=== PATIENT | female | born 1960 | race Caucasian/White ===

== ENCOUNTER → 2017-02-25 | Outpatient (CLI) | payer BC ==
--- NOTE | 2017-02-25 15:25 | US ---
EXAMINATION TYPE: US thyroid st tissue head/neck DATE OF EXAM: 02/25/2017 COMPARISON: NONE CLINICAL HISTORY: E03.9 Hypothyroidism. Hypothyroidism, patient on medication for 15-17 years GLAND SIZE: Right Lobe: 5.0 x 2.0 x 1.9 cm Overall Parenchyma: homogenous Left Lobe: 4.5 x 1.4 x 1.4 cm Overall Parenchyma: homogeneous Isthmus Thickness: 0.3 cm NODULES RIGHT: # of nodules measured on right: 0 LEFT: # of nodules measured on left: 2 1. 1.4 X 0.6 x 0.9 cm cystic nodule at the upper pole with well-defined margins; . This nodule is wider than tall and shows no intranodular vascularity. Prior size: no prior 2. 0.6 X 0.5 x 0.6 cm isoechoic solid nodule at the mid pole with poorly defined margins; . This no dule is wider than tall and shows intranodular vascularity. Prior size: no prior ISTHMUS: # of nodules measured in the isthmus: 0 IMPRESSION: There are 2 left-sided thyroid nodules with the largest measuring 1.4 cm.
== END ==
LOC: RADUSWWP 14:48
PROVIDERS: ATTEND Family Medicine
DX: E04.2 Nontoxic multinodular goiter (principal); E03.9 Hypothyroidism, unspecified
CPT/HCPCS: 76536

== ENCOUNTER → 2017-11-25 | Outpatient (CLI) | payer BC ==
--- NOTE | 2017-11-25 15:44 | US ---
EXAMINATION TYPE: US thyroid st tissue head/neck DATE OF EXAM: 11/25/2017 COMPARISON: US CLINICAL HISTORY: Hypothyroidism E03.9. Hypothyroid, F/U previous GLAND SIZE: Right Lobe: 4.2 x 1.5 x 1.4 cm Overall Parenchyma: Slightly heterogeneous Left Lobe: 3.7 x 1.7 x 1.3 cm Overall Parenchyma: homogeneous Isthmus Thickness: 0.3 cm NODULES RIGHT: # of nodules measured on right: 1 1. 0.6 X 0.4 x 0.4 cm hypoechoic mixed nodule at the lower pole with poorly defined margins; This nodule is taller than wide and shows intranodular vascularity. Prior size: Not visualized on prior LEFT: # of nodules measured on left: 2 1. 1.4 X 0.6 x 0.8 cm cystic nodule at the mid pole with well-defined margins; This nodule is wider than tall and shows no intranodular vascularity. Prior size: 1.4 x 0.6 x 0.9 cm 2. 0.4 X 0.5 x 0.4 cm isoechoic solid nodule at the lower pole with poorly defined margins; This no dule is wider than tall and shows no intranodular vascularity. Prior size: 0.6 x 0.5 x 0.6 cm Bilateral neck scanned, no evidence of lymphadenopathy. Stable nodules on the left with new sub-cent imeter nodule on the right. IMPRESSION: Overall benign-appearing cystic left thyroid nodule measuring 1.4 cm and stable subcentimeter left th yroid nodule. Additional new subcentimeter right thyroid nodule is identified for which surveillance is recommended.
== END | disposition home or self-care (01) ==
LOC: RADUSWWP 14:44
PROVIDERS: ATTEND Family Medicine
DX: E04.2 Nontoxic multinodular goiter (principal); E03.9 Hypothyroidism, unspecified
CPT/HCPCS: 76536

== ENCOUNTER → 2018-01-03 | Outpatient (CLI) | payer BC ==
[2018-01-03 08:11] VITALS: BP 126/82; PULSE 71; TEMP 98.4; BMI 31.0
--- NOTE | 2018-01-03 08:46 | P.HPOB ---
History of Present Illness H&P Date: 01/03/18 Chief Complaint: The patient is here for her routine gynecologic exam and mammogram. This is a 57-year-old G0 with an LMP of 2001. She status post ASHANTI BSO for benign reasons. The patient is without gynecologic complaints. Review of Systems The patient has lost 12 pounds over the last 2 years. She denies respiratory, cardiac, or G.I. problems. Past Medical History Past Medical History: GERD/Reflux, Thyroid Disorder (Hypothyroid) Additional Past Medical History / Comment(s): Osteopenia. 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 History of Any Multi-Drug Resistant Organisms: None Reported Past Surgical History: Bladder Surgery (Vaginal bladder sling 2009), Hysterectomy (ASHANTI BSO in 2001), Joint Replacement (Left and right knee replacements) Additional Past Surgical History / Comment(s): Right elbow tumor removed, bunionectomy, Multiple colonoscopies the most recent in 2012. Past Psychological History: No Psychological Hx Reported Smoking Status: Current every day smoker (5 cigarettes per day) Past Alcohol Use History: Occasional (12 per week) Past Drug Use History: None Reported Additional History: She's been since 1983 and retired from the [employer] in 2018. She collects and restores older cars. - Past Family History Father Family Medical History: Cancer (Esophagus) Mother Family Medical History: Cancer (Breast) Medications and Allergies Home Medications Medication Instructions Recorded Confirmed Type Aspirin [Children's Aspirin] mg PO DAILY 01/03/18 History Cholecalciferol [Vitamin D3] tab PO DAILY 01/03/18 History Levothyroxine Sodium [Synthroid] mcg PO DAILY 01/03/18 History Multivitamin [Multivitamins Adult tab PO DAILY 01/03/18 History Gummies] Raloxifene [Evista] mg PO DAILY 01/03/18 History Allergies Allergy/AdvReac Type Severity Reaction Status Date / Time No Known Allergies Allergy Unverified 01/03/18 08:05 Exam Vital Signs Temp Pulse BP 01/03/18 08:06 98.4 F 71 126/82 Intake and Output 01/02/18 01/03/18 01/03/18 22:59 06:59 14:59 Other: Weight 89.811 kg Height 5'7", BMI 31. This is a well-developed well-nourished white female who is alert and oriented times 3 in no acute distress. HEENT: Within normal limits. NECK: Supple without mass or thyromegaly. CHEST AND LUNGS: Clear to auscultation. HEART: Regular rate and rhythm. BREASTS: Are without mass or discharge. AXILLARY EXAM: Negative for adenopathy. BACK: Negative for CVA tenderness. ABDOMEN: Soft, nontender, without palpable masses. PELVIC EXAM: External genitalia appears normal with mild atrophy. Vagina appears normal is mild atrophy. There is no evidence of prolapse. Bimanual examination is negative for mass or tenderness. RECTAL EXAM: Rectovaginal exam is negative for mass or tenderness and is negative for occult blood. EXTREMITIES: Nontender. IMPRESSION: 1. 57-year-old menopausal female who is status post ASHANTI BSO with normal gynecologic exam. 2. History of osteopenia who is on if Evista through her primary care physician. PLAN: 1. Pap smears have been discontinued. 2. Self breast awareness was discussed. 3. Screening mammogram will be done today. 4. Osteoporosis prevention was discussed. She is on Evista prescribed by her primary care physician. It has been 3 years since her last bone density test. I have recommended repeating the bone density test and an order slip was given to the patient for this. 5. She will return in one year.
--- NOTE | 2018-01-05 10:28 | MM ---
Reason for exam: screening (asymptomatic). Last mammogram was performed 3 years and 6 months ago. History: Patient is postmenopausal and is nulliparous. Family history of breast cancer in mother at age 25. Benign right mammotome panel of the right breast, February 05, 2008. Physical Findings: A clinical breast exam by your physician is recommended on an annual basis and results should be correlated with mammographic findings. MG 3D Screening Mammo W/Cad Bilateral CC and MLO view(s) were taken. Prior study comparison: June 25, 2014, bilateral MG screening mammo w CAD. June 20, 2013, bilateral digital screening mammo w/CAD. There are scattered fibroglandular densities. Previous mammotome biopsy in the right breast. Focal asymmetry right upper inner quadrant, stable. No significant changes when compared with prior studies. ASSESSMENT: Benign, BI-RAD 2 RECOMMENDATION: Routine screening mammogram of both breasts in 1 year.
== END | disposition home or self-care (01) ==
LOC: WWCWWP 07:51
PROVIDERS: ATTEND Obstetrics & Gynecology
DX: Z12.31 Encounter for screening mammogram for malignant neoplasm of breast (principal)
CPT/HCPCS: 77063; 77067

== ENCOUNTER → 2018-06-29 | Outpatient (CLI) | payer BC ==
[2018-06-29 17:59] LABS: T4, Free (Free Thyroxine) 1.4 ng/dL (0.80-1.80)
== END | disposition home or self-care (01) ==
LOC: LABWHC1 10:22
PROVIDERS: ATTEND Internal Medicine Endocrinology, Diabetes & Metabolism
DX: E04.2 Nontoxic multinodular goiter (principal)
CPT/HCPCS: 36415; 84439; 84443

== ENCOUNTER → 2019-01-01 | Outpatient (CLI) | payer BC ==
--- NOTE | 2019-01-01 13:30 | US ---
EXAMINATION TYPE: US thyroid st tissue head/neck DATE OF EXAM: 01/01/2019 COMPARISON: US 11/25/17 CLINICAL HISTORY: E04.2 Nontoxic Multinodular Goiter. GLAND SIZE: Right Lobe: 4.2 x 1.8 x 1.3 cm Overall Parenchyma: homogenous Left Lobe: 3.7 x 1.5 x 1.1 cm Overall Parenchyma: homogeneous Isthmus Thickness: 0.4 cm NODULES RIGHT: # of nodules measured on right: 1 1. 0.9 X 0.7 x 0.4 cm isoechoic mixed nodule at the lower pole with poorly defined margins; . This nodule is wider than tall and shows no intranodular vascularity. Prior size: 0.6 x 0.4 x 0.4 cm LEFT: # of nodules measured on left: 2 1. 0.5 X 0.4 x 0.3 cm hypoechoic cystic nodule at the mid pole with well-defined margins; . This n odule is wider than tall and shows no intranodular vascularity. Prior size: 1.4 x 0.6 x 0.8 cm 2. 0.9 X 0.7 x 0.5 cm hypoechoic solid nodule at the lower pole with poorly defined margins; . This nodule is wider than tall and shows no intranodular vascularity. Prior size: 0.4 x 0.5 x 0.4 cm ISTHMUS: # of nodules measured in the isthmus: 0 Bilateral neck scanned, no evidence of lymphadenopathy. IMPRESSION: Stable nonspecific nodularity.
[2019-01-01 13:52] LABS: T4, Free (Free Thyroxine) 1.08 ng/dL (0.78-2.19)
== END | disposition home or self-care (01) ==
LOC: RADUSWWP 12:09
PROVIDERS: ATTEND Internal Medicine Endocrinology, Diabetes & Metabolism
DX: E07.9 Disorder of thyroid, unspecified (principal); E04.2 Nontoxic multinodular goiter
CPT/HCPCS: 76536; 84439; 84443

== ENCOUNTER → 2019-05-22 | Outpatient (CLI) | payer BC ==
[2019-05-22 09:23] VITALS: BP 158/86; PULSE 78; RESP 18; TEMP 98.3
--- NOTE | 2019-05-22 09:56 | P.HPOB ---
History of Present Illness H&P Date: 05/22/19 Chief Complaint: The patient is here for her routine gynecologic exam. This is a 58-year-old G0 with an LMP of 2001. The patient is status post ASHANTI/BSO for benign reasons. The patient is without gynecologic complaints. Review of Systems The patient has lost 4 pounds over the last year. She denies respiratory, cardiac, or G.I. problems. Past Medical History Past Medical History: GERD/Reflux, Thyroid Disorder Additional Past Medical History / Comment(s): Hypothyroidism. Osteopenia. 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 History of Any Multi-Drug Resistant Organisms: None Reported Past Surgical History: Bladder Surgery, Hysterectomy, Joint Replacement Additional Past Surgical History / Comment(s): ASHANTI/BSO 2001. Right wrist ganglion cyst, Right elbow tumor removed, bunionectomy, Last [id number](next after 5yr). Past Psychological History: No Psychological Hx Reported Smoking Status: Current every day smoker (4 cigarettes per day) Past Alcohol Use History: Occasional (8 per week) Past Drug Use History: None Reported Additional History: She has been since 1983 and has not been sexually active. She retired from [employer] in 2018. She collects and restore is older corridors. - Past Family History Father Family Medical History: Cancer Additional Family Medical History / Comment(s): Esophagus cancer. Mother Family Medical History: Cancer Additional Family Medical History / Comment(s): Breast cancer. Medications and Allergies Home Medications Medication Instructions Recorded Confirmed Type Aspirin [Children's Aspirin] 81 mg PO DAILY 01/03/18 05/22/19 History Cholecalciferol [Vitamin D3] 1,000 tab PO DAILY 01/03/18 05/22/19 History Levothyroxine Sodium [Synthroid] 88 mcg PO DAILY 01/03/18 05/22/19 History Multivitamin [Multivitamins Adult 1 tab PO DAILY 01/03/18 05/22/19 History Gummies] Raloxifene [Evista] 60 mg PO DAILY 01/03/18 05/22/19 History Allergies Allergy/AdvReac Type Severity Reaction Status Date / Time latex Allergy Rash/Hives Unverified 05/22/19 09:23 Exam Vital Signs Temp Pulse Resp BP Pulse Ox 05/22/19 09:18 98.3 F 78 18 158/86 98 Intake and Output 05/21/19 05/22/19 05/22/19 22:59 06:59 14:59 Other: Weight 87.997 kg Height 5 feet 7 inches, weight 194 pounds, BMI 30.4. This is a well-developed well-nourished white female who is alert and oriented times 3 in no acute distress. HEENT: Within normal limits. NECK: Supple without mass or thyromegaly. CHEST AND LUNGS: Clear to auscultation. HEART: Regular rate and rhythm. BREASTS: Are without mass or discharge. AXILLARY EXAM: Negative for adenopathy. BACK: Negative for CVA tenderness. ABDOMEN: Soft, nontender, without palpable masses. PELVIC EXAM: External genitalia appears normal with mild to moderate atrophy. Vagina appears normal with mild to moderate atrophy. There is no evidence of prolapse. Bimanual examination is negative for mass or tenderness. RECTAL EXAM: Rectovaginal exam is negative for mass or tenderness and is negative for occult blood. EXTREMITIES: Nontender. IMPRESSION: 1. 58-year-old menopausal female status post ASHANTI/BSO for benign reasons with normal gynecologic exam. 2. History of osteopenia who is on is on Evista through her primary care physician. PLAN: 1. Pap smears have been discontinued. 2. Self breast awareness was discussed with the patient. 3. Screening mammogram is due and is scheduled for 05/30/2019. The order slip was given to the patient for this. 4. Osteoporosis prevention was discussed. I have stressed the importance of adequate calcium, vitamin D and regular exercise. Recommended amounts of calcium and vitamin D were also discussed. Bone density testing is due and the order slip was given to the patient for this. This is scheduled for 05/30/2019. 5. She was advised to return in one year for her annual well woman exam.
--- NOTE | 2019-06-11 14:51 | P.PN ---
Progress Note - Text Progress Note Date: 06/11/19 OUTPATIENT FOLLOW-UP NOTE TEST(S)/RESULTS: Test results from 05/30/2019 include benign mammogram and bone density testing showing osteopenia. METHOD OF NOTIFICATION: The patient was notified by phone. PATIENT COMMENTS: The patient continues to take Evista as prescribed by her primary care physician. DIAGNOSIS: Osteopenia and benign mammogram. DISCUSSION: I have stressed the importance of getting adequate calcium, vitamin D and regular exercise. PLAN: Repeat bone density testing in 2-3 years. She was advised to return in one year for her annual well woman exam.
== END | disposition home or self-care (01) ==
LOC: WWCWWP 09:09
PROVIDERS: ATTEND Obstetrics & Gynecology
DX: Z53.9 Procedure and treatment not carried out, unspecified reason (principal)

== ENCOUNTER → 2019-05-30 | Outpatient (CLI) | payer BC ==
--- NOTE | 2019-05-30 07:57 | BD ---
EXAMINATION TYPE: Axial Bone Density DATE OF EXAM: 05/30/2019 COMPARISON: Prior DEXA bone scan June 25, 2014. CLINICAL HISTORY: Postmenopausal female. Height: 5 FT 4 3/4 IN Weight: 190 FRAX RISK QUESTIONS: Alcohol (3 or more units per day): NO Family History (Parent hip fracture): NO Glucocorticoids (More than 3mos): NO (Ex: prednisone, prednisolone, methylprednisolone, dexamethasone, and hydrocortisone). History of Fracture in Adulthood: NO Secondary Osteoporosis: 1. Type 1 Diabetes: NO 2. Hyperthyroidism: NO 3. Menopause before 45: YES 4. Malnutrition: NO 5. Chronic liver disease: NO Rheumatoid Arthritis: NO Current Tobacco Use: YES RISK FACTORS HISTORY OF: Surgery to Spine/Hip(right/left)/Wrist (right/left): RT WRIST CARPAL TUNNEL,GANGLION CYST REMOVED When: AUGUST 2018 Active: YES Postmenopausal woman: TOTAL HYST AGE 40 Take estrogen and/or progesterone medications: TOOK HRT FOR ONE YEARS AFTER HYST Lost more than 2 inches in height since high school: YES MEDICATIONS: Thyroid Medications: YES Which medication: SYNTHROID How Long: APPROX 10 YEARS Additional Medications: SYNTHROID, ASPIRIN, VIT D,EVISTA Additional History: HAS TAKEN EVISTA FOR APPROX 15 YEARS EXAM MEASUREMENTS: Bone mineral densitometry was performed using the [employer] System. Bone mineral density as measured about the Lumbar spine is: ----- L1-L4(G/cm2): 1.071 T Score Values are as follows: ----- L2: -1.2 ----- L3: -1.9 ----- L4: -1.4 ----- L1-L4: -0.9 Bone mineral density has: DECREASED -0.9 % since study of: 2014 Bone mineral density about the R hip (g/cm2): 0.903 Bone mineral density about the L hip (g/cm2): 0.875 T Score values are as follows: -----R Neck: -1.0 -----L Neck: -1.2 -----R Total: -0.9 -----L Total: -0.8 Bone mineral density has: DECREASED -5.8 % since study of: 2014 IMPRESSION: Osteopenia (T Score between -2.5 and -1) remains present. There is slightly increased risk of fracture and the patient may be considered for treatment. Re-Screen 2-5 years. NOTE: T-SCORE=SD OF THE YOUNG ADULT MEAN.
--- NOTE | 2019-05-31 13:50 | MM ---
Reason for exam: screening (asymptomatic). Last mammogram was performed 1 year and 5 months ago. History: Patient is postmenopausal and is nulliparous. Family history of breast cancer in mother at age 25. Benign right mammotome panel of the right breast, February 05, 2008. Physical Findings: A clinical breast exam by your physician is recommended on an annual basis and results should be correlated with mammographic findings. MG 3D Screening Mammo W/Cad Bilateral CC and MLO view(s) were taken. Prior study comparison: January 03, 2018, bilateral MG 3d screening mammo w/cad. June 25, 2014, bilateral MG screening mammo w CAD. The breast tissue is heterogeneously dense. This may lower the sensitivity of mammography. Previous mammotome biopsy in the right breast. No significant changes when compared with prior studies. ASSESSMENT: Benign, BI-RAD 2 RECOMMENDATION: Routine screening mammogram of both breasts in 1 year.
== END | disposition home or self-care (01) ==
LOC: RADMAMWWP 06:52
PROVIDERS: ATTEND Obstetrics & Gynecology
DX: Z12.31 Encounter for screening mammogram for malignant neoplasm of breast (principal); M85.80 Other specified disorders of bone density and structure, unspecified site; Z78.0 Asymptomatic menopausal state
CPT/HCPCS: 77063; 77067; 77080

== ENCOUNTER → 2020-03-18 | Outpatient (CLI) | payer BC ==
--- NOTE | 2020-03-18 12:24 | CT ---
EXAMINATION TYPE: CT abdomen pelvis wo con DATE OF EXAM: 03/18/2020 COMPARISON: None INDICATION: Rt flank pain DLP: 297.7 mGycm, Automated exposure control for dose reduction was used. CONTRAST: 0 mL of Isovue 300. Study performed with Oral Contrast TECHNIQUE: Axial images were obtained from above the diaphragm to the pubic rami in the axial plane a t 5 mm thick sections. Reconstructed images are reviewed on the computer in the coronal plane. FINDINGS: Limited CT sections are obtained the lung bases. The lung bases are clear. CT ABDOMEN: Liver: Normal Spleen: Normal Pancreas: Normal Adrenal glands: The adrenal glands are normal. Gallbladder: Surgically absent Kidneys: No masses are evident. No hydronephrosis is present. No cysts are present. No renal stone s are evident. Aorta: Vascular calcification is within the aorta. Inferior vena cava: Normal. CT PELVIS: Small periumbilical hernia is present. Loops of bowel within the abdomen and pelvis are normal. There are loops of bowel which are incom pletely distended or lack oral contrast limiting their evaluation. Oral contrast extends to the desce nding colon. Multiple diverticuli are within the sigmoid colon. Some sigmoid wall thickening may be p resent. No inflammatory changes are identified. Mild diverticulitis or mild colitis could be consider ed. Appendix: Not identified. No suspicious dilated tubular structures or inflammatory changes are eviden t. Urinary bladder: Normal. Genitourinary structures: Uterus and ovaries are absent Osseous structures: No suspicious lytic or sclerotic lesions. IMPRESSIONS: 1. Thickened diffuse sigmoid colon wall without adjacent inflammatory changes. Mild diverticulitis o r colitis could be considered. This is longer than expected for typical neoplasm should be considered within the differential. Additional workup is recommended.
== END | disposition home or self-care (01) ==
LOC: RADCTMAIN 10:19
PROVIDERS: ATTEND Family Medicine
DX: R10.9 Unspecified abdominal pain (principal); M54.5 Low back pain
CPT/HCPCS: 74176

== ENCOUNTER → 2020-08-19 | Outpatient (CLI) | payer BC ==
[2020-08-19 09:22] VITALS: BP 145/92; PULSE 83; RESP 18; TEMP 98.5
--- NOTE | 2020-08-19 09:53 | P.HPOB ---
History of Present Illness H&P Date: 08/19/20 Chief Complaint: The patient is here for her routine gynecologic exam and ma mmogram. This is a 60-year-old G0 with an LMP of 2001. The patient is status post ASHANTI/BSO for benign reasons. The patient is without gynecologic complaints. Review of Systems The patient has lost 3 pounds over the last year. She denies respiratory, cardiac, or G.I. problems. : She continues to do well following the sling procedure she had done in 2009. Past Medical History Past Medical History: GERD/Reflux, Thyroid Disorder Additional Past Medical History / Comment(s): Hypothyroidism. Osteopenia. 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 History of Any Multi-Drug Resistant Organisms: None Reported Past Surgical History: Bladder Surgery, Hysterectomy, Joint Replacement Additional Past Surgical History / Comment(s): ASHANTI/BSO 2001. Bladder sling procedure 2009. Right wrist ganglion cyst, Right elbow tumor removed, bunionectomy, Last [id number](next after 5yr). Past Psychological History: No Psychological Hx Reported Smoking Status: Current some day smoker (About 8 cigarettes per week.) Past Alcohol Use History: Occasional (4 per week) Past Drug Use History: None Reported Additional History: She has been since 1983 and is not sexually active. She retired from [employer] in 2018. She and her collect and restore older cars. - Past Family History Father Family Medical History: Cancer Additional Family Medical History / Comment(s): Esophagus cancer. Mother Family Medical History: Cancer Additional Family Medical History / Comment(s): Breast cancer. Medications and Allergies Home Medications Medication Instructions Recorded Confirmed Type Aspirin [Children's Aspirin] 81 mg PO DAILY 01/03/18 08/19/20 History Cholecalciferol [Vitamin D3] 1,000 tab PO DAILY 01/03/18 08/19/20 History Levothyroxine Sodium [Synthroid] 88 mcg PO DAILY 01/03/18 08/19/20 History Multivitamin [Multivitamins Adult 1 tab PO DAILY 01/03/18 08/19/20 History Gummies] Raloxifene [Evista] 60 mg PO DAILY 01/03/18 08/19/20 History Allergies Allergy/AdvReac Type Severity Reaction Status Date / Time latex Allergy Rash/Hives Unverified 08/19/20 09:22 Exam Vital Signs Temp Pulse Resp BP Pulse Ox 08/19/20 09:16 98.5 F 83 18 145/92 98 Intake and Output 08/18/20 08/19/20 08/19/20 22:59 06:59 14:59 Other: Weight 86.636 kg Height 5 feet 6 inches, weight 191 pounds, BMI 30.8. This is a well-developed well-nourished white female who is alert and oriented times 3 in no acute distress. HEENT: Within normal limits. NECK: Supple without mass or thyromegaly. CHEST AND LUNGS: Clear to auscultation. HEART: Regular rate and rhythm. BREASTS: Are without mass or discharge. AXILLARY EXAM: Negative for adenopathy. BACK: Negative for CVA tenderness. ABDOMEN: Soft, nontender, without palpable masses. PELVIC EXAM: External genitalia appears normal with moderate atrophy. Vagina appears normal with moderate atrophy. There is no evidence of prolapse. Bimanual examination is negative for mass or tenderness. RECTAL EXAM: Rectovaginal exam is negative for mass or tenderness and is negative for occult blood. EXTREMITIES: Nontender. IMPRESSION: 1. 60-year-old menopausal female status post ASHANTI/BSO for benign reasons with normal gynecologic exam. 2. History of osteopenia who continues to take Evista through her primary care physician. PLAN: 1. Pap smears have been discontinued. 2. Self breast awareness was discussed with the patient. 3. Screening mammogram will be done today. 4. Osteoporosis prevention was discussed. I have stressed the importance of adequate calcium, vitamin D and regular exercise. Recommended amounts of calcium and vitamin D were also discussed. We will plan on doing bone density testing next year. She will continue to use Evista as prescribed by her PCP. 5. She was advised to return in one year for her annual well woman exam.
--- NOTE | 2020-08-19 12:25 | MM ---
Reason for exam: screening (asymptomatic). Last mammogram was performed 1 year and 3 months ago. History: Patient is postmenopausal and is nulliparous. Family history of breast cancer in mother at age 25. Benign right mammotome panel of the right breast, February 05, 2008. Physical Findings: A clinical breast exam by your physician is recommended on an annual basis and results should be correlated with mammographic findings. MG 3D Screening Mammo W/Cad Bilateral CC and MLO view(s) were taken. Prior study comparison: May 30, 2019, bilateral MG 3d screening mammo w/cad. January 03, 2018, bilateral MG 3d screening mammo w/cad. The breast tissue is heterogeneously dense. This may lower the sensitivity of mammography. There are benign appearing round calcifications bilaterally. Previous mammotome biopsy in the right breast. There is no discrete abnormality. ASSESSMENT: Benign, BI-RAD 2 RECOMMENDATION: Routine screening mammogram of both breasts in 1 year.
== END ==
LOC: WWCWWP 09:11
PROVIDERS: ATTEND Obstetrics & Gynecology
DX: Z78.0 Asymptomatic menopausal state (principal); Z80.3 Family history of malignant neoplasm of breast; E03.9 Hypothyroidism, unspecified; K21.9 Gastro-esophageal reflux disease without esophagitis; F17.210 Nicotine dependence, cigarettes, uncomplicated; Z12.31 Encounter for screening mammogram for malignant neoplasm of breast
CPT/HCPCS: 77063; 77067

== ENCOUNTER → 2021-01-12 | Outpatient (CLI) | payer BC ==
--- NOTE | 2021-01-12 10:12 | US ---
EXAMINATION TYPE: US thyroid st tissue head/neck DATE OF EXAM: 01/12/2021 COMPARISON: NONE CLINICAL HISTORY: 60-year-old female E04.2 Nontoxic multinodular goiter. Thyroid nodule TECHNIQUE: Multiple sonographic images of the thyroid gland are obtained. FINDINGS: GLAND SIZE: Right Lobe: 4.9 x 1.8 x 1.8 cm Overall Parenchyma: homogenous Left Lobe: 4.2 x 1.3 x 1.2 cm Overall Parenchyma: homogeneous Isthmus Thickness: .2 cm NODULES RIGHT: # of nodules measured on right: 1 1. .3 X .3 x .2 cm, lower lateral, solid or almost completely solid, hypoechoic nodule, which is wi omar than tall, with smooth margins, without echogenic foci. Prior size no prior 2. Mid nodule on previous not seen on today's exam LEFT: # of nodules measured on left: 2 1. .4 X .2 x .3 cm, mid , cystic or almost completely cystic, anechoic nodule, which is wider than tall, with smooth margins, without echogenic foci. Prior size: .3 x .2 x .3 cm 2. .6 X .2 x .5 cm, lower lateral, solid or almost completely solid, hypoechoic nodule, which is w ider than tall, with smooth margins, without echogenic foci. Prior size: .6 x .4 x .5 cm ISTHMUS: # of nodules measured in the isthmus: 0 Bilateral neck scanned, no evidence of lymphadenopathy. IMPRESSION: 1. A couple stable subcentimeter nodules on the left measuring up to 6 mm. 2. A tiny 3 mm nodule on the right is new. 3. The previous 6 mm right midpole nodule is no longer seen.
== END | disposition home or self-care (01) ==
LOC: RADUSWWP 08:13
PROVIDERS: ATTEND Internal Medicine Endocrinology, Diabetes & Metabolism
DX: E04.2 Nontoxic multinodular goiter (principal); E03.8 Other specified hypothyroidism
CPT/HCPCS: 36415; 76536; 84443

== ENCOUNTER → 2021-08-17 | Outpatient (CLI) | payer BC ==
[2021-08-17 15:12] LABS: T4, Free (Free Thyroxine) 1.34 ng/dL (0.800-1.800)
== END | disposition home or self-care (01) ==
LOC: LABWHC1 09:40
PROVIDERS: ATTEND Internal Medicine Endocrinology, Diabetes & Metabolism
DX: E04.2 Nontoxic multinodular goiter (principal)
CPT/HCPCS: 36415; 84439; 84443

== ENCOUNTER → 2021-10-13 | Outpatient (CLI) | payer BC ==
[2021-10-13 09:08] VITALS: BP 186/80; PULSE 68; RESP 16; TEMP 98
--- NOTE | 2021-10-13 09:50 | P.HPOB ---
History of Present Illness H&P Date: 10/13/21 Chief Complaint: The patient is here for her routine gynecologic exam and ma mmogram. This is a 61-year-old G0 with an LMP of 2001. The patient is without gynecologic complaints. She is status post ASHANTI/BSO for benign reasons. Review of Systems The patient has lost 7 pounds over the last year. The weight loss has been intentional and she states she has been eating smaller portions. She denies respiratory, cardiac, or G.I. problems. Past Medical History Past Medical History: GERD/Reflux, Thyroid Disorder Additional Past Medical History / Comment(s): Hypothyroidism. Osteopenia. 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 History of Any Multi-Drug Resistant Organisms: None Reported Past Surgical History: Bladder Surgery, Hysterectomy, Joint Replacement Additional Past Surgical History / Comment(s): ASHANTI/BSO 2001. Bladder sling procedure 2009. Right wrist ganglion cyst, Right elbow tumor removed, bunionectomy, Last [id number](next after 10yr). Past Psychological History: No Psychological Hx Reported Smoking Status: Current some day smoker (About 5 cigarettes per week.) Past Alcohol Use History: Occasional (12 beers per week.) Past Drug Use History: None Reported Additional History: She has been since 1983 and is not sexually active. She is retired. She and her collect and restore older cars. - Past Family History Father Family Medical History: Cancer Additional Family Medical History / Comment(s): Esophagus cancer. Mother Family Medical History: Cancer Additional Family Medical History / Comment(s): Breast cancer. Medications and Allergies Home Medications Medication Instructions Recorded Confirmed Type Cholecalciferol [Vitamin D3] 3,000 tab PO DAILY 01/03/18 10/13/21 History Levothyroxine Sodium [Synthroid] 88 mcg PO DAILY 01/03/18 10/13/21 History Raloxifene [Evista] 60 mg PO DAILY 01/03/18 08/19/20 History Allergies Allergy/AdvReac Type Severity Reaction Status Date / Time latex Allergy Rash/Hives Verified 10/13/21 09:03 Exam Vital Signs Temp Pulse Resp BP Pulse Ox 10/13/21 09:04 98.0 F 68 16 186/80 97 Intake and Output 10/12/21 10/13/21 10/13/21 22:59 06:59 14:59 Other: Weight 83.461 kg Height 5 feet 6 inches, weight 184 pounds, BMI 29.7. This is a well-developed well-nourished white female who is alert and oriented times 3 in no acute distress. HEENT: Within normal limits. NECK: Supple without mass or thyromegaly. CHEST AND LUNGS: Clear to auscultation. HEART: Regular rate and rhythm. BREASTS: Are without mass or discharge. AXILLARY EXAM: Negative for adenopathy. BACK: Negative for CVA tenderness. ABDOMEN: Soft, nontender, without palpable masses. PELVIC EXAM: External genitalia appears normal with moderate atrophy. Vagina appears normal to moderate atrophy. There is no evidence of prolapse. Bimanual examination is negative for mass or tenderness. RECTAL EXAM: Rectovaginal exam is negative for mass or tenderness and is negative for occult blood. EXTREMITIES: Nontender. IMPRESSION: 1. 61-year-old menopausal female status post ASHANTI/BSO for benign reasons, with n ormal gynecologic exam. 2. History of osteopenia who is taking Evista through her PCP. PLAN: 1. Pap smears have been discontinued. 2. Self breast awareness was discussed with the patient. We have also discussed symptoms associated with inflammatory breast cancer. 3. Screening mammogram has been done today. 4. Osteoporosis prevention was discussed. I have stressed the importance of adequate calcium, vitamin D and regular exercise. Recommended amounts of calcium and vitamin D were also discussed. Bone density testing was done today. She will discuss Evista with her PCP and will continue to get the prescription for the Evista through her PCP. 5. We have discussed her elevated blood pressure. She states she has an appointment with Dr. Cheema in the upcoming week and will discuss her blood pressure elevation with her. She will also check her own blood pressures on a regular basis since she does have a blood pressure cuff at home. 6. She was advised to return in one year for her annual well woman exam.
--- NOTE | 2021-10-13 11:40 | BD ---
EXAMINATION TYPE: Axial Bone Density DATE OF EXAM: 10/13/2021 COMPARISON: DEXA bone scan May 30, 2019 CLINICAL HISTORY: 61 year old Female. ICD-10 CODE: Z780 POST MENOPAUSAL WITHOUT HRT Height: 66 Weight: 184.8 FRAX RISK QUESTIONS: Alcohol (3 or more units per day): no Family History (Parent hip fracture): no Glucocorticoids (More than 3mos): no (Ex: prednisone, prednisolone, methylprednisolone, dexamethasone, and hydrocortisone). History of Fracture in Adulthood: yes Secondary Osteoporosis: 1. Type 1 Diabetes: no 2. Hyperthyroidism: no 3. Menopause before 45: yes 4. Malnutrition: no 5. Chronic liver disease: no Rheumatoid Arthritis: no Current Tobacco Use: no RISK FACTORS HISTORY OF: Surgery to Spine/Hip(right/left)/Wrist (right/left): no Family History of Osteoporosis: no Active: yes Diet low in dairy products/other sources of calcium: yes Postmenopausal woman: yes Lost more than 2 inches in height since high school: yes MEDICATIONS: Thyroid Medications: synthroid How Lon years Additional History: EXAM MEASUREMENTS: Bone mineral densitometry was performed using the [employer] System. Bone mineral density as measured about the Lumbar spine is: ----- L1-L4(G/cm2): 1.061 T Score Values are as follows: ----- L1: 0.7 ----- L2: -1.3 ----- L3: -2.1 ----- L4: -1.3 ----- L1-L4: -1.0 Bone mineral density has: decreased -1.0 % since study of: 05.30.2019 Bone mineral density about the R hip (g/cm2): 0.903 Bone mineral density about the L hip (g/cm2): 0.827 T Score values are as follows: -----R Neck: -1.0 -----L Neck: -1.5 -----R Total: -0.8 -----L Total: -1.1 Bone mineral density has: decreased -1.3 % since study of: 05.30.2019 FRAX%s: The graph provided illustrates a 14.2% chance for a major osteoporotic fx and a 1.4% chance f or the hips probability for fx in 10 years time. IMPRESSION: Osteopenia (T Score between -2.5 and -1) is redemonstrated. There remains slightly increased risk of fracture and the patient may be considered for treatment. Re-Screen 2-5 years. NOTE: T-SCORE=SD OF THE YOUNG ADULT MEAN.
--- NOTE | 2021-10-14 11:43 | MM ---
Reason for exam: screening (asymptomatic). Last mammogram was performed 1 year and 2 months ago. History: Patient is postmenopausal and is nulliparous. Family history of breast cancer in mother at age 25. Benign right mammotome panel of the right breast, February 05, 2008. Physical Findings: A clinical breast exam by your physician is recommended on an annual basis and results should be correlated with mammographic findings. MG 3D Screening Mammo W/Cad Bilateral CC and MLO view(s) were taken. Prior study comparison: August 19, 2020, bilateral MG 3d screening mammo w/cad. May 30, 2019, bilateral MG 3d screening mammo w/cad. The breast tissue is heterogeneously dense. This may lower the sensitivity of mammography. There is no discrete abnormality. No significant changes when compared with prior studies. ASSESSMENT: Negative, BI-RAD 1 RECOMMENDATION: Routine screening mammogram of both breasts in 1 year.
== END | disposition home or self-care (01) ==
LOC: RADMAMWWP 07:50
PROVIDERS: ATTEND Obstetrics & Gynecology
DX: Z12.31 Encounter for screening mammogram for malignant neoplasm of breast (principal); M85.80 Other specified disorders of bone density and structure, unspecified site; Z78.0 Asymptomatic menopausal state
CPT/HCPCS: 77063; 77067; 77080

== ENCOUNTER → 2021-10-23 | Outpatient (CLI) | payer BC ==
--- NOTE | 2021-10-23 08:54 | XR ---
EXAMINATION TYPE: XR shoulder complete RT DATE OF EXAM: 10/23/2021 CLINICAL HISTORY: pain TECHNIQUE: Three views of the right shoulder are obtained. COMPARISON: None FINDINGS: There is no acute fracture/dislocation evident. The acromioclavicular and glenohumeral ronald int spaces appear mildly narrowed. The visualized ribs are intact and unremarkable. IMPRESSION: 1. There is no acute fracture or dislocation. ICD 10 NO FRACTURE, INITIAL EVALUATION
== END | disposition home or self-care (01) ==
LOC: RADXRMAIN 08:24
PROVIDERS: ATTEND Family Medicine
DX: M25.811 Other specified joint disorders, right shoulder (principal)

== ENCOUNTER → 2022-03-11 | Outpatient (CLI) | payer BC ==
--- NOTE | 2022-03-11 09:24 | US ---
EXAMINATION TYPE: US thyroid st tissue head/neck DATE OF EXAM: 03/11/2022 COMPARISON: US CLINICAL HISTORY: E04.2 NONTOXIC MULTINODULAR GOITER. F/U GLAND SIZE: Right Lobe: 4.6 x 1.6 x 1.2 cm Overall Parenchyma: homogenous Left Lobe: 4.1 x 1.6 x 0.9 cm Overall Parenchyma: homogeneous Isthmus Thickness: 0.2 cm NODULES RIGHT: # of nodules measured on right: 1 1. 0.5 X 0.4. x 0.5 cm, lower, solid or almost completely solid, hypoechoic nodule, which is wider than tall, with smooth margins, without echogenic foci. TR 4 Prior size: 0.3 x 0.3 x 0.2 cm LEFT: # of nodules measured on left: 2 1. 0.5 X 0.4 x 0.5 cm, mid, solid or almost completely solid, hypoechoic nodule, which is wider pratima n tall, with smooth margins, without echogenic foci. Prior size: 0.4 x 0.2 x 0.3 cm 2. 0.3 X 0.2 x 0.2 cm, mid, solid or almost completely solid, hypoechoic nodule, which is wider th an tall, with smooth margins, with echogenic foci. Prior size: Not visualized on prior ISTHMUS: # of nodules measured in the isthmus: 0 Bilateral neck scanned, no evidence of lymphadenopathy. Sub-centimeter nodules bilaterally. IMPRESSION: Mildly suspicious nodule right lobe thyroid. Consider follow-up ultrasound in one year. 2017 ACR TI-RADS LEVEL: TR-RADS 4 - Moderately Suspicious: Follow if > 1 cm, FNA if > 1.5 cm *Highest TI-RADS level nodule reported
[2022-03-11 16:21] LABS: T4, Free (Free Thyroxine) 1.75 ng/dL (0.800-1.800)
== END | disposition home or self-care (01) ==
LOC: RADUSWWP 07:27
PROVIDERS: ATTEND Internal Medicine Endocrinology, Diabetes & Metabolism
DX: E04.2 Nontoxic multinodular goiter (principal)
CPT/HCPCS: 76536; 84439; 84443

== ENCOUNTER → 2022-09-24 | Outpatient (CLI) | payer BC ==
[2022-09-24 16:04] LABS: T4, Free (Free Thyroxine) 1.47 ng/dL (0.800-1.800)
== END | disposition home or self-care (01) ==
LOC: LABWHC1 09:30
PROVIDERS: ATTEND Internal Medicine Endocrinology, Diabetes & Metabolism
DX: E04.2 Nontoxic multinodular goiter (principal); E03.8 Other specified hypothyroidism
CPT/HCPCS: 36415; 84439; 84443

== ENCOUNTER → 2022-11-09 | Outpatient (CLI) | payer BC ==
[2022-11-09 09:27] VITALS: BP 117/75; PULSE 75; RESP 17; TEMP 98.5
--- NOTE | 2022-11-09 09:56 | P.HPOB ---
History of Present Illness H&P Date: 11/09/22 Chief Complaint: The patient is here for her routine gynecologic exam and ma mmogram. This is a 62-year-old G0 with an LMP of 2001. The patient is without gynecologic complaints. She is status post ASHANTI/BSO for benign reasons. Review of Systems She has lost about 4 pounds over the past year and this has been intentional. She denies respiratory or cardiac problems. GI: Occasional loose stool or occasional constipation with certain foods. Past Medical History Past Medical History: GERD/Reflux, Thyroid Disorder Additional Past Medical History / Comment(s): Hypothyroidism. Osteopenia with fractures (on alendronate since 2022). 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 History of Any Multi-Drug Resistant Organisms: None Reported Past Surgical History: Bladder Surgery, Hysterectomy, Joint Replacement Additional Past Surgical History / Comment(s): ASHANTI/BSO 2001. Bladder sling procedure 2009. Right wrist ganglion cyst, Right elbow tumor removed, bunionectomy, Last [id number](next after 10yr). Past Psychological History: No Psychological Hx Reported Smoking Status: Current some day smoker (1 pack per week) Past Alcohol Use History: Occasional (6 per week.) Past Drug Use History: None Reported Additional History: She has been since 1983 and is not sexually active. She is retired. She and her collect and restore older cars. - Past Family History Father Family Medical History: Cancer Additional Family Medical History / Comment(s): Esophagus cancer. Mother Family Medical History: Cancer Additional Family Medical History / Comment(s): Breast cancer. Medications and Allergies Home Medications Medication Instructions Recorded Confirmed Type Cholecalciferol [Vitamin D3] 3,000 tab PO DAILY 01/03/18 11/09/22 History Levothyroxine Sodium [Synthroid] 88 mcg PO DAILY 01/03/18 11/09/22 History Alendronate Sodium 70 tablet PO WEEKLY 11/09/22 11/09/22 History Chlorthalidone 25 tab PO DAILY 11/09/22 11/09/22 History Losartan [Cozaar] 50 mg PO DAILY 11/09/22 11/09/22 History Allergies Allergy/AdvReac Type Severity Reaction Status Date / Time latex Allergy Rash/Hives Verified 11/09/22 09:22 Exam Vital Signs Temp Pulse Resp BP Pulse Ox 11/09/22 09:24 98.5 F 75 17 117/75 96 Intake and Output 11/08/22 11/09/22 11/09/22 22:59 06:59 14:59 Other: Weight 127.006 kg Height 5 feet 6 inches, weight 180 pounds, BMI 29. This is a well-developed well-nourished white female who is alert and oriented times 3 in no acute distress. HEENT: Within normal limits. NECK: Supple without mass or thyromegaly. CHEST AND LUNGS: Clear to auscultation. HEART: Regular rate and rhythm. BREASTS: Are without mass or discharge. AXILLARY EXAM: Negative for adenopathy. BACK: Negative for CVA tenderness. ABDOMEN: Soft, nontender, without palpable masses. PELVIC EXAM: External genitalia appears normal with mild to moderate atrophy. Vagina appears normal with mild to moderate atrophy. There is no evidence of prolapse. Bimanual examination is negative for mass or tenderness. RECTAL EXAM: Rectovaginal exam is negative for mass or tenderness and is negative for occult blood. EXTREMITIES: Nontender. IMPRESSION: 1. 62-year-old menopausal female status post ASHANTI/BSO for benign reasons, with normal gynecologic exam. 2. History of osteopenia with bone fractures. The patient was started on alendronate this year by her PCP. PLAN: 1. Pap smears have been discontinued. 2. Self breast awareness was discussed with the patient. We have also discussed symptoms associated with inflammatory breast cancer. 3. Screening mammogram will be done today. 4. Osteoporosis prevention was discussed. I have stressed the importance of adequate calcium, vitamin D and regular exercise. Recommended amounts of calcium and vitamin D were also discussed. She will continue alendronate as prescribed by her PCP. I recommended repeating the bone density test in one year. 5. She has been trying to smoking and is down to one pack per week. I have recommended that she continue to try to quit and she hopes to be not smoking by next year. 6. She was advised to return in one year for her annual well woman exam.
--- NOTE | 2022-11-10 19:15 | MM ---
Reason for Exam: Screening (asymptomatic). Last screening mammogram was performed 12 month(s) ago. Patient History: Menarche at age 10. Patient has no children. Left ovary removed at age 40. Right ovary removed at age 40. Hysterectomy at age 40. Postmenopausal. Patient used Estrogen for 2 years. 02/05/2008, Benign Core Biopsy on the right side. Mother had breast cancer, age 25. Risk Values: Genevieve 5 year model risk: 3.7%. NCI Lifetime model risk: 14.4%. Prior Study Comparison: 05/30/2019 Bilateral Screening Mammogram, [facility]. 08/19/2020 Bilateral Screening Mammogram, [facility]. 10/13/2021 Bilateral Screening Mammogram, [facility]. Tissue Density: There are scattered fibroglandular densities. Findings: Analyzed By CAD. Areas of bilateral asymmetric densities remain unchanged. Microclip right breast from prior biopsy. There is no suspicious group of microcalcifications or new suspicious mass in either breast. Overall Assessment: Benign, BI-RAD 2 Management: Screening Mammogram of both breasts in 1 year. See note below in regards to patient's increased 5 year Genevieve score. Patient should continue monthly self-breast exams. A clinical breast exam by your physician is recommended on an annual basis. This exam should not preclude additional follow-up of suspicious palpable abnormalities. Note on Genevieve scores and lifetime risk: 1. A Genevieve score greater than 3% is considered moderate risk. If this is the case, consider specialist referral to assess eligibility for a risk reducing agent. 2. If overall lifetime risk for the development of breast cancer is 20% or higher, the patient may qualify for future screening with alternating mammogram and breast MRI. Electronically signed and approved by: Virginia Zuniga M.D. Radiologist
== END ==
LOC: WWCWWP 09:15
PROVIDERS: ATTEND Obstetrics & Gynecology
DX: Z12.31 Encounter for screening mammogram for malignant neoplasm of breast (principal); Z01.419 Encounter for gynecological examination (general) (routine) without abnormal findings; E03.9 Hypothyroidism, unspecified; F17.210 Nicotine dependence, cigarettes, uncomplicated; K21.9 Gastro-esophageal reflux disease without esophagitis; M85.80 Other specified disorders of bone density and structure, unspecified site; Z79.899 Other long term (current) drug therapy; Z80.3 Family history of malignant neoplasm of breast; Z90.710 Acquired absence of both cervix and uterus; Z90.722 Acquired absence of ovaries, bilateral; Z91.040 Latex allergy status; Z79.890 Hormone replacement therapy
CPT/HCPCS: 77063; 77067

== ENCOUNTER → 2023-03-17 | Outpatient (CLI) | payer BC ==
--- NOTE | 2023-03-17 10:44 | MR ---
EXAMINATION TYPE: MR shoulder LT wo con DATE OF EXAM: 03/17/2023 COMPARISON: X-ray 02/18/2023 HISTORY: Left shoulder pain x 4 mos, no trauma. TECHNIQUE: Multiplanar, multisequence imaging of the left shoulder is performed without contrast. FINDINGS: There is diffuse osteopenia with moderate AC joint arthropathy. Cystic changes involving the humeral head are likely post degenerative/arthropathy. There is a small glenohumeral joint effusion. Inferior glenohumeral ligament appears intact. Bony lab rum grossly intact by arthrogram technique. There is mild glenohumeral joint narrowing. There is a marked thickening and increased signal involving the distal 2.3 cm of the supraspinatus te ndon and anterior fibers of the infraspinatus tendon extending to the insertion compatible severe ten dinopathy and partial intrasubstance tear. Note through thickness tear or retraction noted. There is large amount of fluid surrounding the biceps tendon which appears to be situated in the bici pital groove. There is intermediate adjacent signal may be related to inflammatory change. Abnormal signal nearly insertion and distal subscapularis tendon. The suprascapular notch has a normal appearance. There is fluid along the subscapularis bursa which l ikely represents a combination of bursal fluid and possibly ganglion cyst. There is medial displaceme nt of the biceps tendon secondary to attritional tear of the subscapularis near its origin. Large fluid seen along the medial margin of the scapula likely represents a combination ganglion cyst and an bursal fluid. IMPRESSION: 1 severe tendinosis of the distal supraspinatus tendon with 3 mm bursal surface anterior fiber partia l tear near the insertion. 2.Severe tendinosis anterior fibers distal infraspinatus tendon with no definite tear. 3. Attritional tear\Insertion subscapularis tendon with medial subluxation of the biceps tendon. 4. Diffuse tendinopathy of the biceps tendon throughout its course. Debris is seen in the tendon dowd th at the level of the bicipital groove. There is subluxation medially of the tendon with marked thic kening of the intracapsular portion of the tendon compatible split tear.
== END | disposition home or self-care (01) ==
LOC: RADMRIMAIN 08:07
PROVIDERS: ATTEND Family Medicine
DX: M75.112 Incomplete rotator cuff tear or rupture of left shoulder, not specified as traumatic (principal); M67.814 Other specified disorders of tendon, left shoulder

== ENCOUNTER → 2023-03-25 | Outpatient (CLI) | payer BC ==
[2023-03-25 16:44] LABS: T4, Free (Free Thyroxine) 1.65 ng/dL (0.80-1.80)
== END | disposition home or self-care (01) ==
LOC: LABWHC1 09:47
PROVIDERS: ATTEND Internal Medicine Endocrinology, Diabetes & Metabolism
DX: E04.2 Nontoxic multinodular goiter (principal)
CPT/HCPCS: 36415; 84439; 84443

== ENCOUNTER → 2023-06-15 | Outpatient (CLI) | payer BC, MEDICARE ==
--- NOTE | 2023-06-15 10:03 | CTL ---
EXAMINATION TYPE: CT Low Dose Lung DATE OF EXAM ORDERED: 06/15/2023 HISTORY: Long-term tobacco use. Lung cancer screening CT DLP: 105.[address] CTDI: 3.1 mGy Automated exposure control for dose reduction was used. SCREENING VISIT: Baseline COMPARISON: None TECHNIQUE: Low dose computed tomography scan was performed through the chest at 1 mm thick sections a nd reconstructed images in multiple planes at 1 mm and [address] DIAGNOSTIC QUALITY: Satisfactory FINDINGS: LUNG NODULES: Present, detailed below: A few scattered tiny nodules, for reference is a 2 to 3 mm peripheral right lower lobe nodule axial i mage 146. There is 4 mm peripheral left lower lobe nodule axial image 156 noted. No greater than 6 mm noncalcified pulmonary nodules. LUNGS: COPD: Severity: None Fibrosis: Severity: None Lymph nodes: None Other findings: None RIGHT PLEURAL SPACE: Effusion: None Calcification: None Thickening: None Pneumothorax: None LEFT PLEURAL SPACE: Effusion: None Calcification: None Thickening: None Pneumothorax: None HEART: Heart Size: Normal Coronary Calcification: Minimal Pericardial Effusion: None OTHER FINDINGS: Upper abdomen: None Bony thorax: Mild multilevel spurring in the spine Supraclavicular region: None Other: None IMPRESSION: A few scattered tiny nodules. No greater than [address] LUNG RAD AND CT CHEST RECOMMENDATION: Lung-Rad 2 Benign Appearance or Behavior: Continue annual sc reening with LDCT in 12 months. S Modifier (other clinically significant findings): None
== END | disposition home or self-care (01) ==
LOC: RADCTMAIN 08:59
PROVIDERS: ATTEND Family Medicine
DX: Z12.2 Encounter for screening for malignant neoplasm of respiratory organs (principal); R91.8 Other nonspecific abnormal finding of lung field; F17.210 Nicotine dependence, cigarettes, uncomplicated
CPT/HCPCS: 71271

== ENCOUNTER → 2023-08-25 | Outpatient (CLI) | payer MEDICARE ==
--- NOTE | 2023-08-25 09:29 | US ---
EXAMINATION TYPE: US thyroid st tissue head/neck DATE OF EXAM: 08/25/2023 COMPARISON: 03/11/2022 CLINICAL INDICATION: Female, 63 years old with history of E04.1 NONTOXIC SINGLE THYROID NODULE; GLAND SIZE: Right Lobe: 5.5 x 1.3 x 1.7 cm Overall Parenchyma: homogeneous Left Lobe: 3.6 x 1.3 x 1.2 cm Overall Parenchyma: homogeneous Isthmus Thickness: 0.2 cm NODULES RIGHT: # of nodules measured on right: 1 1. 0.5 X 0.4 x 0.5 cm, lower mid, mixed cystic and solid, hypoechoic TR 3 nodule, which is wider th an tall, with smooth margins, without echogenic foci. Prior size: 0.5 x 0.4 x 0.5 cm LEFT: # of nodules measured on left: 2 1. 0.4 X 0.3 x 0.4 cm, mid medial, mixed cystic and solid, hypoechoic TR 3 nodule, which is wider t balbuena tall, with smooth margins, without echogenic foci. Prior size: 0.5 x 0.4 x 0.5 cm 2. Nodule seen on prior study too small to characterize on today's exam ISTHMUS: # of nodules measured in the isthmus: 0 Bilateral neck scanned, no evidence of lymphadenopathy. IMPRESSION: A couple small TR3 nodules measuring up to 5 mm are unchanged. 2017 ACR TI-RADS LEVEL: TR-RADS 3 - Mildly Suspicious: Follow if > 1.5 cm, FNA if > 2.5 cm *Highest TI-RADS level nodule reported
== END | disposition home or self-care (01) ==
LOC: RADUSWWP 08:08
PROVIDERS: ATTEND Internal Medicine Endocrinology, Diabetes & Metabolism
DX: E04.1 Nontoxic single thyroid nodule (principal); R22.0 Localized swelling, mass and lump, head
CPT/HCPCS: 76536

== ENCOUNTER → 2023-09-28 | Outpatient (CLI) | payer MEDICARE ==
[2023-09-28 19:29] LABS: T4, Free (Free Thyroxine) 1.71 ng/dL (0.80-1.80)
== END | disposition home or self-care (01) ==
LOC: LABWHC1 10:29
PROVIDERS: ATTEND Internal Medicine Endocrinology, Diabetes & Metabolism
DX: E04.1 Nontoxic single thyroid nodule (principal)
CPT/HCPCS: 36415; 84439; 84443